=== PATIENT | female | born 1940 ===

== ENCOUNTER 2017-02-07 21:24 | Inpatient (IN) | payer OTHER ==
--- NOTE | 2017-02-07 21:55 | EDPHY ---
H & P Stated Complaint: Left hand dog bite 4 days. HPI/ROS: HPI CHIEF COMPLAINT: Left hand swelling, infection, dog Bite HISTORY OF PRESENT ILLNESS: This patient is 76-year-old female, otherwise healthy denies taking any significant medications, she presents emergency room with left hand pain and swelling and redness after she had a dog bite. She sustained this dog bite 4 days ago. She was started on antibiotics Keflex and clindamycin 3 days ago. She states initially got better but now it is worse. She has pain and swelling to the dorsum of left hand. She is unable to fully flex her fingers as she has pain and swelling. No fever today. There has been purulent discharge plan. She has been taking her Keflex and clindamycin. Past Medical History: Denies medical history Past Surgical History: Denies surgical history Social History: Denies daily use drugs alcohol tobacco products. Family History: Noncontributory ROS REVIEW OF SYSTEMS: A comprehensive 10 point review of systems is otherwise negative aside from elements mentioned in the history of present illness. Exam Constitutional triage nursing summary reviewed, vital signs reviewed, awake/ alert. Eyes normal conjunctivae and sclera, EOMI, PERRLA. HENT normal inspection, atraumatic, moist mucus membranes, no epistaxis, neck supple/ no meningismus, no raccoon eyes. Respiratory clear to auscultation bilaterally, normal breath sounds, no respiratory distress, no wheezing. Cardiovascular rate normal, regular rhythm, no murmur, no edema, distal pulses normal. Gastrointestinal soft, non-tender, no rebound, no guarding, normal bowel sounds, no distension, no pulsatile mass. Genitourinary no CVA tenderness. Musculoskeletal left hand: Neurovascularly intact, to the dorsum left hand there is a 2 cm laceration present, purulent drainage from this, no abscess, surrounding erythema 4 cm circumferential, has trouble with flexion of her 5th digit. No pain with extension. Warm to touch. no midline vertebral tenderness , full range of motion, no calf swelling, no tenderness of extremities, no meningismus, good pulses, neurovascularly intact. Skin pink, warm, & dry, no rash, skin atraumatic. Neurologic awake, alert and oriented x 3, AAOx3, moves all 4 extremities equally, motor intact, sensory intact, CN II-XII intact, normal cerebellar, normal vision, normal speech. Psychiatric normal mood/affect. Heme/Lymph/Immune no lymphadenopathy. Differential Diagnosis: Includes but is not limited to in a particular order left hand infection, dog bite infection, failure of outpatient antibiotics, deep space hand infection Medical Decision Making: Plan for this patient IV established with blood cultures, inflammatory markers, CBC, IV Unasyn, hand surgery consult x-ray of left hand Re-evaluation: 2223: Patient's hand x-ray reviewed. Three view. No visible fracture. No visible foreign body. Soft tissue swelling. 2252: I spoke with Hand surgery Dr. Hancock: He will see in consult on the patient. Recommend hospital admission IV antibiotics. Wound culture bad soaking clean wound. Source: Patient - Personal History Current Tetanus/Diphtheria Vaccine: Unsure Current Tetanus Diphtheria and Acellular Pertussis (TDAP): Unsure - Medical/Surgical History Hx Asthma: No Hx Chronic Respiratory Disease: No Hx Diabetes: No Hx Cardiac Disease: No Hx Renal Disease: No Hx Cirrhosis: No Hx Alcoholism: No Hx HIV/AIDS: No Hx Splenectomy or Spleen Trauma: No Other PMH: HTN, macular degeneration, hypothyroidsm, appendicectomy, R MC. - Social History Smoking Status: Former smoker Constitutional: Initial Vital Signs Temperature (C) 36.6 C 02/07/17 21:27 Heart Rate 77 02/07/17 21:27 Respiratory Rate 16 02/07/17 21:27 Blood Pressure 163/91 H 02/07/17 21:27 O2 Sat (%) 96 02/07/17 21:27 O2 Delivery Mode Room Air Allergies/Adverse Reactions: No Known Allergies Allergy (Unverified 02/07/17 21:34) Home Medications: Medication Instructions Recorded Amoxicillin/Clavulanate Pot 875 mg PO BID #14 tab 02/08/17 [Augmentin 875 MG TAB (*)] Herbals/Supplements -Info Only 1 ea PO DAILY 02/08/17 Hydrogen Peroxide [Hydrogen 1 harrison TP BID solution 02/08/17 Peroxide (OTC)] amLODIPine BESYLATE [Norvasc 5 mg 5 mg PO DAILY #30 tab 02/08/17 (*)] Medical Decision Making - Data Points Laboratory Results: Laboratory Results 02/07/17 22:25 02/07/17 22:25 Medications Given: Discontinued Medications Acetaminophen (Tylenol) 650 mg PO Q4HRS PRN PRN Reason: Pain, Mild/Fever, Can Take PO Stop: 08/06/17 23:29 Last Admin: 02/08/17 15:39 Dose: 650 mg Amlodipine Besylate (Norvasc) 5 mg PO DAILY ROBIN Stop: 08/07/17 17:59 Last Admin: 02/09/17 08:18 Dose: 5 mg Diphtheria/Tetanus/Acell Pertussis (Boostrix) 0.5 ml IM .ONCE ONE Stop: 02/07/17 22:06 Last Admin: 02/07/17 22:32 Dose: 0.5 ml Hydralazine HCl (Apresoline) 10 mg IVP Q1HR PRN PRN Reason: SBP Greater Than Stop: 08/07/17 00:48 Last Admin: 02/08/17 12:59 Dose: 10 mg Hydrogen Peroxide (Hydrogen Peroxide) 1 harrison TP BID ROBIN Stop: 03/10/17 20:59 Last Admin: 02/09/17 07:40 Dose: 0.2 btl Sodium Chloride (Ns) 1,000 mls @ 0 mls/hr IV EDNOW ONE; Wide Open PRN Reason: Protocol Stop: 02/07/17 21:59 Last Admin: 02/07/17 22:33 Dose: 1,000 mls Ampicillin Sodium/Sulbactam (Sodium 3 gm/ Sodium Chloride) 100 mls @ 200 mls/ hr IV EDNOW ONE PRN Reason: Protocol Stop: 02/07/17 22:32 Last Admin: 02/07/17 22:55 Dose: 100 mls Sodium Chloride (Ns) 1,000 mls @ 75 mls/hr IV CONT ROBIN Stop: 08/06/17 23:29 Last Admin: 02/08/17 05:38 Dose: 1,000 mls Ampicillin Sodium/Sulbactam (Sodium 1.5 gm/ Sodium Chloride) 50 mls @ 200 mls/ hr IV Q6H ROBIN PRN Reason: Protocol Stop: 03/10/17 04:59 Last Admin: 02/09/17 10:49 Dose: 50 mls Departure - Departure Disposition: [facility] Acute Clinical Impression: Cellulitis of hand Dog bite Qualifiers: Encounter type: initial encounter Qualified Code(s): W54.0XXA - Bitten by dog, initial encounter Condition: Good
[2017-02-07] MEDS ORDERED: NS 1,000 ML IV ONE (21:58)
[2017-02-07] MEDS ORDERED: AMPICILLIN/SULBACTAM 3 GM in NS 100 ML IV ONE (22:03)
[2017-02-07] MEDS ORDERED: TDAP ADULT 0.5 ML INJ (BOOSTRIX) IM ONE (22:05)
[2017-02-07 22:39] LABS: % IMMATURE GRANULYOCYTES 0.3 % (0.0-1.1); ABSOLUTE IMMATURE GRANULOCYTES 0.02 10^3/uL (0.00-0.10); ADD DIFF? NO; ADD MORPH? NO; ADD SCAN? NO; ATYPICAL LYMPHOCYTE FLAG 0 (0-99); FRAGMENT RBC FLAG 0 (0-99); HEMATOCRIT 37.5 % (38.0-47.0); HEMOGLOBIN 12.1 g/dL (12.6-16.3); LEFT SHIFT FLG 0 (0-99); LIPEMIA HEMOLYSIS FLAG 80 (0-99); MEAN CELL HEMOGLOBIN 30.3 pg (27.9-34.1); MEAN CELL HEMOGLOBIN CONCENTR. 32.3 g/dL (32.4-36.7); MEAN PLATELET VOLUME 11.1 fL (8.7-11.7); PLATELET CLUMPS FLAG 0 (0-99); PLATELET COUNT 254 10^3/uL (150-400); RED BLOOD CELL COUNT 3.99 10^6/uL (4.18-5.33); RED CELL DISTRIBUTION WIDTH 13.7 % (11.5-15.2)
[2017-02-07 22:52] LABS: ANION GAP 12 mEq/L (8-16); CALCIUM 9.1 mg/dL (8.5-10.4); CARBON DIOXIDE 22 mEq/l (22-31); CHLORIDE 106 mEq/L (97-110); CREATININE 0.8 mg/dL (0.6-1.0); GLOMERULAR FILTRATION RATE > 60; GLUCOSE 104 mg/dL (70-100); POTASSIUM 4.6 mEq/L (3.5-5.2); SODIUM 140 mEq/L (134-144)
[2017-02-07 22:53] LABS: SEDIMENTATION RATE 19 MM/HR (0-30)
[2017-02-07] MEDS ORDERED: ACETAMINOPHEN 325 MG TAB PO PRN (23:30)
[2017-02-07] MEDS ORDERED: LORazepam 0.5 MG TAB PO PRN (23:30)
[2017-02-07] MEDS ORDERED: HYDROCODONE/APAP 5/325 TAB PO PRN (23:30)
[2017-02-07] MEDS ORDERED: ONDANSETRON 4 MG/2 ML VIAL IVP PRN (23:30)
[2017-02-07] MEDS ORDERED: HYDROmorphONE/DILAUDID 2 MG/ML INJ IVP PRN (23:30)
[2017-02-07] MEDS ORDERED: NS 1,000 ML IV SCH (23:30)
[2017-02-08] MEDS ORDERED: LORazepam 2 MG/ML INJ IVP PRN (00:49)
[2017-02-08] MEDS: hydrALAZINE 20 MG/ML VIAL IVP PRN ×2 (01:20→12:59)
[2017-02-08 02:23] LABS: COLOR PALE YELLOW; LEUKOCYTE ESTERASE,URINE NEGATIVE (NEGATIVE); NITRITE,URINE NEGATIVE (NEGATIVE)
--- NOTE | 2017-02-08 05:09 | GHP ---
[f rep st] HISTORY AND PHYSICAL DATE OF ADMISSION: 02/07/2017 CHIEF COMPLAINT: Left hand pain and swelling. HISTORY OF PRESENT ILLNESS: This is a very pleasant 76-year-old female with no significant past medi owen history, who presents to the emergency department today with complaints of worsening left hand sw elling. Patient was bitten approximately 5 days ago by her brother's dog who is vaccinated. The pat ient injury occurred approximately 5 days ago and she subsequently had follow up outpatient for lenore salinas, was started on clindamycin and Keflex. The patient reports that she initially started to feel better on the antibiotics; however, after a few days, she has continued to develop decreased appetit e, chills, nausea without vomiting, and worsening swelling, redness and warmth of the left hand exten ding into the wrist. Today, swelling was significantly increased. Patient reports decreased range o f motion in her left hand and some numbness and tingling that started today. Patient also has been h aving some drainage that stops and goes from the wound on her hand. REVIEW OF SYSTEMS: GENERAL: Significant for chills without subjective fevers, decreased appetite. S KIN: Patient also reports some small right lateral leg wound related to trauma after she bumped into something that was slow to heal, but now almost healed. She has no other rashes or sores besides he r left hand as per HPI. ENT: Patient denies any nasal congestion or sore throat. EYES: Patient wi th progressive changes in vision, lightheadedness, she feels is related to her history of macular deg eneration. CV: The patient denies any chest pain, palpitations. RESPIRATORY: The patient recently moved less than a year ago from [place] to [place] and she continues to have some dyspnea on exert ion, but no cough. GI: Nausea, as noted above with decreased appetite. No diarrhea or abdominal pa in. : No dysuria or hematuria. MUSCULOSKELETAL: The patient reports history of osteoarthritis i n her hands. She has decreased range of motion as noted above per HPI on the left hand and a history of right total hip arthroplasty. NEURO: The patient reports some numbness and tingling that starte d this evening in her left hand. No headaches. PSYCH: Patient reports some anxiety and depression, but denies any SI or HI. ALLERGIES: No known drug allergies. HOME MEDICATIONS: Clindamycin and Keflex. Patient reports she has been taking for the last 3 days. She also takes approximately 20 [id number]-[id number] multivitamins and supplements. PAST MEDICAL HISTORY: Significant for macular degeneration, osteoarthritis, history of iron deficien cy. PAST SURGICAL HISTORY: Significant for appendectomy, right total hip arthroplasty, tonsillectomy and adenoidectomy, and cataract surgery. Patient has also had multiple injections for treatment of macu lar degeneration in both eyes. FAMILY HISTORY: Significant for diabetes, hypertension. SOCIAL HISTORY: Patient quit smoking 10-15 years ago. She does not use any illicit drugs. No alcoh ol. CODE STATUS: Was discussed with the patient. Initially, she was not sure that she wanted any heroic resuscitation efforts, but after further discussion with her daughter, she desires to be a full code . PHYSICAL EXAMINATION: VITAL SIGNS: On arrival, temperature 36.6, blood pressure 163/91, heart rate 77, respiratory rate 16, O2 saturation 96% on room air. Current vitals: Blood pressure 204/91, hear t rate 75, respiratory rate 16, pulse ox 94% on room air. However, blood pressure was obtained with me at bedside after I had just discussed resuscitation status with the patient and she became increas ingly anxious and upset. GENERAL: No acute distress. Pleasant adult female, appears slightly older than stated age, sitting in bed. Her daughter is at bedside. HEAD: Normocephalic atraumatic. EYES : Extraocular muscles intact. Pupils equal, round, slightly decreased to activity and light bilater ally, but symmetric. No scleral icterus or conjunctival injection. Gerber reflex appreciated bilateral ly. ENT: Mucous membranes appear slightly dry. No pharyngeal erythema or exudates. NECK: Supple. Trachea midline. CV: Regular rate and rhythm. No murmurs, rubs, or gallops appreciated. RESPIRAT ORY: Lungs clear to auscultation bilaterally. No wheezes, rales, or rhonchi appreciated on labored breathing. ABDOMEN: Positive bowel sounds, soft, nontender to palpation. No rebound, guarding, or masses appreciated. : No Weller in place. No suprapubic tenderness to palpation. EXTREMITIES: P atient without any cyanosis, clubbing, or lower extremity edema. Her left hand is notably swollen to the wrist. She has some erythema that extends proximally past the fingers to the wrist. She has an open wound with some serosanguineous fluid draining from an opening on the dorsum of her hand that m easures approximately 1 cm. Patient has notable decreased range of motion in the fingers related to her edema. Sensation is intact in those fingers. Cap refill appropriate. MUSCULOSKELETAL: The pat loretta's strength grossly normal. She moves all extremities with exception of the left hand, see above . NEURO: Grossly nonfocal. The patient is awake, alert, and oriented x4. She is pleasant and coop erative. PSYCH: Patient does become quite anxious and a little upset with me for discussing code st atus, but understanding of need to have this discussion. She remains anxious through the rest of the visit. LABORATORY STUDIES: WBC 7.3, H and H 12.1 and 37.5, MCV 94.0, platelet count 254. No bands. ESR is 19. Sodium 140, potassium 4.0, chloride 106, CO2 22, BUN 23, creatinine 0.8. GFR greater than 60, glucose 104, calcium 9.1. CRP is 47. REPORTS: Hand x-ray imaging report reviewed myself of the left hand, 3 view, negative for acute osse ous abnormality with advanced degenerative changes noted, most severe involving the left thumb. Osse ous demineralization is also noted. ASSESSMENT AND PLAN: This pleasant 76-year-old female presents following a dog bite on her left hand . 1. Left hand wound related to animal bite. The patient is status post 3 days of clindamycin and Kef freda with worsening edema and drainage. The patient has been transitioned to IV antibiotics with Unas yn. Wound culture and blood cultures were obtained in the ER prior to IV antibiotics. Hand surgery was consulted from the emergency department and will plan to see patient in the morning. She has no evidence of sepsis at this time. Other ESR is elevated. Will make patient n.p.o. after midnight in anticipation for possible need for surgical debridement. 2. Elevated blood pressure without a diagnosis of hypertension. The patient does report a history o f anxiety and blood pressures typically do increase during healthcare visits. Will monitor the patie nt's blood pressures. Will add hydralazine p.r.n., but the patient does not take anything at home. 3. Anxiety and depression: Mood stable at this time. Ativan will be available p.r.n. 4. Fluid, electrolyte and nutrition. The patient reports a 3-day history of poor appetite and oral intake. Her mucous membranes do appear a little bit dry. We will give her some supplemental IV flui ds overnight, go ahead and replace any electrolytes that may be low in the morning. She will be allo wed a diet and then n.p.o. after that until evaluated by surgery. 5. Prophylaxis SCDs only. Holding anticoagulation for potential perioperative status. 6. Code status is full. 7. Disposition: The patient admitted to inpatient status, as she has clearly failed outpatient ther apy and has notable edema and swelling in her hand. Anticipate greater than 2 midnight stay, particu larly to monitor for improvement in her edema and awaiting blood cultures to ensure there is no bacte remia. /[id number]/MODL
[2017-02-08 05:10] LABS: % IMMATURE GRANULYOCYTES 0.5 % (0.0-1.1); ABSOLUTE IMMATURE GRANULOCYTES 0.03 10^3/uL (0.00-0.10); ADD DIFF? NO; ADD MORPH? NO; ADD SCAN? NO; ATYPICAL LYMPHOCYTE FLAG 10 (0-99); FRAGMENT RBC FLAG 0 (0-99); HEMATOCRIT 37.7 % (38.0-47.0); HEMOGLOBIN 12.2 g/dL (12.6-16.3); LEFT SHIFT FLG 0 (0-99); LIPEMIA HEMOLYSIS FLAG 80 (0-99); MEAN CELL HEMOGLOBIN 30.4 pg (27.9-34.1); MEAN CELL HEMOGLOBIN CONCENTR. 32.4 g/dL (32.4-36.7); MEAN PLATELET VOLUME 10.8 fL (8.7-11.7); PLATELET CLUMPS FLAG 0 (0-99); PLATELET COUNT 240 10^3/uL (150-400); RED BLOOD CELL COUNT 4.01 10^6/uL (4.18-5.33); RED CELL DISTRIBUTION WIDTH 13.7 % (11.5-15.2)
[2017-02-08 05:18] LABS: INR 1.06 (0.83-1.16); PROTIME(PATIENT) 13.7 SEC (12.0-15.0)
[2017-02-08 05:19] LABS: APTT 26.8 SEC (23.0-38.0)
[2017-02-08 05:27] LABS: ANION GAP 10 mEq/L (8-16); CALCIUM 9.4 mg/dL (8.5-10.4); CARBON DIOXIDE 23 mEq/l (22-31); CHLORIDE 110 mEq/L (97-110); CREATININE 0.7 mg/dL (0.6-1.0); GLOMERULAR FILTRATION RATE > 60; GLUCOSE 106 mg/dL (70-100); POTASSIUM 4.2 mEq/L (3.5-5.2); SODIUM 143 mEq/L (134-144)
[2017-02-08] MEDS: AMPICILLIN/SULBACTAM 1.5 GM in NS 50 ML IV SCH ×4 (05:42→22:02)
--- NOTE | 2017-02-08 09:24 | GHP ---
[f rep st] HISTORY AND PHYSICAL DATE OF ADMISSION: 02/07/2017 CHIEF COMPLAINT: Left hand pain and swelling. HISTORY OF PRESENT ILLNESS: I was asked to see this patient by the medical team and Dr. Sandoval for ev aluation of her left hand. She was bitten by a dog 4 days ago. She was placed on Keflex, and this o riginally controlled the infection. Now the infection has evolved to the point where she has some pu rulent drainage from her hand, swelling, and ascending cellulitis which has been worsening. She was admitted through the emergency room last night and given antibiotics, Unasyn, and by her report, has improved overnight. PAST MEDICAL HISTORY: Please refer to the patient's main chart. PHYSICAL EXAMINATION: The patient has some swelling of her left hand and erythema. There is no palp able pocket of pus. There is a scabbed over area, which is closed. There is no ascending cellulitis . There is edema subcutaneously, and the patient can move her fingers with no extensor lag and full flexion. There are no swollen lymph nodes in her axilla or antecubital fossa. Circulation is good. ASSESSMENT: Cellulitis and abscess, dorsal hand. PLAN AND RECOMMENDATIONS: It looks like the abscess is resolving nicely. Whatever broke open yester day seems to have drained the abscess and the Unasyn is dramatically improving things, so I do not th ink that she needs to go to the operating room right now. We are going to let her eat, continue IV U nasyn for another 24 hours, have her do twice daily soaks, and the nurses were given instruction on t his and compressive dressings. I suspect that by tomorrow, she will be doing fine and be able to be discharged on Augmentin for 7-10 days and see me in the office on Thursday. We will see how things go overnight. Her vital signs are normal, and she is very stable. /[id number]/MODL
--- NOTE | 2017-02-08 11:04 | ASMTCMCOM ---
CM Note CM Note Notes: Patient admitted after failing oral antibiotic therapy for cellulitis d/t a dog bite. She is now on IV Unasyn and responding well. It does not look like she'll need surgical debridement or IV abx upon discharge. She is eating and stable. CM available for any discharge needs. Date Signed: 02/08/2017 11:04 AM Electronically Signed By:Meg Berg RN
--- NOTE | 2017-02-08 11:20 | HOSPPROG ---
Hospitalist Progress Note Assessment/Plan: #Left dorsal hand abscess: from dog bite. Dr. Hancock evaluated and no need for OR now. Soaks, dressing. IV Unasyn. If improved tomorrow, DC on Augmentin -dog has had rabies shot. Talk with patient about last tetanus shot #Pain: control with APAP #Disp: warrants obs admission with hand abscess requiring IV abx Subjective: pain min, swelling improved Objective: Vital Signs Temp Pulse Resp BP Pulse Ox 36.4 C 82 18 172/72 H 92 02/08/17 04:00 02/08/17 04:00 02/08/17 04:00 02/08/17 04:00 02/08/17 04:00 Laboratory Results 02/08/17 04:52 02/08/17 04:52 02/07/17 02/08/17 02/09/17 05:59 05:59 05:59 Intake Total 100 Balance 100 PT 13.7 SEC (12.0-15.0) 02/08/17 04:52 INR 1.06 (0.83-1.16) 02/08/17 04:52 - Physical Exam Constitutional: no apparent distress Eyes: PERRL Ears, Nose, Mouth, Throat: moist mucous membranes Cardiovascular: regular rate and rhythym, no murmur, rub, or gallop Respiratory: no respiratory distress, no rales or rhonchi Gastrointestinal: normoactive bowel sounds, soft, non-tender abdomen Genitourinary: no bladder fullness, no bladder tenderness Skin: warm, normal color Musculoskeletal: other (left dorsum of hand swollen. Bite site with mild drainage. Good cap refill, +2 radial pulse) Neurologic: AAOx3, CN II-XII Intact Psychiatric: interacting appropriately ICD10 Worksheet Patient Problems: Problems Problem Status Onset Dog bite Acute - ICD10 Problem Qualifiers (1) Dog bite
[2017-02-08] MEDS: amLODIPine BESYLATE 5 MG TAB PO SCH (18:40)
[2017-02-08 19:43] VITALS: RESP 18
[2017-02-08] MEDS: HYDROGEN PEROXIDE 236 ML BOTTLE TP SCH (22:03)
[2017-02-09] MEDS: AMPICILLIN/SULBACTAM 1.5 GM in NS 50 ML IV SCH ×2 (05:29→10:49)
[2017-02-09] MEDS: HYDROGEN PEROXIDE 236 ML BOTTLE TP SCH (07:40)
--- NOTE | 2017-02-09 08:02 | SOAPPROG ---
SOAP Progress Note Assessment/Plan: Assessment: lEFT hand abscess secondary to dog , improving Plan: Nehal was seen this morning at 0700. She has improved markedly with soaks and IV antibiotics. I think she can go home today after her noon dose of Unasyn and continue with soaks twice daily. I will see her in the office at [facility] on Thursday. [phone]. She should call to arrange. 02/09/17 07:59 Subjective: much improved appearance of hand with minor serous drainage from wound, decreased erythema,no evidence of ongoing abscess, full motion of fingers Objective: Vital Signs Temp Pulse Resp BP Pulse Ox 36.7 C 78 18 144/89 H 92 02/09/17 05:27 02/09/17 05:27 02/09/17 05:27 02/09/17 05:27 02/09/17 05:27 Laboratory Results 02/08/17 04:52 02/08/17 04:52 02/08/17 02/09/17 02/10/17 05:59 05:59 05:59 Intake Total 100 Output Total 600 Balance 100 -600 PT 13.7 SEC (12.0-15.0) 02/08/17 04:52 INR 1.06 (0.83-1.16) 02/08/17 04:52 ICD10 Worksheet Patient Problems: Problems Problem Status Onset Dog bite Acute
[2017-02-09] MEDS: amLODIPine BESYLATE 5 MG TAB PO SCH (08:18)
[2017-02-09 08:21] VITALS: BP 196/99
[2017-02-09 08:30] VITALS: PULSE 95; TEMP 97.6; O2SAT 95
[2017-02-09] MEDS ORDERED: Herbals/Supplements -Info Only PO SCH (09:00)
--- NOTE | 2017-02-09 10:24 | HOSPPROG ---
Hospitalist Progress Note Assessment/Plan: #Left dorsal hand abscess: from dog bite. Dr. Hancock evaluated and no need for OR now. Soaks, dressing. IV Unasyn. If improved tomorrow, DC on Augmentin -dog has had rabies shot. Got tetanus shot in clinic -BID soaks per ortho -FU [facility] on Thu #uncontrolled HTN: appears to be chronic since she had been on atenolol in past. No RODRIGUEZ, CP, SOB. Started on Norvasc. Needs PCP, FU BP this week #Pain: control with APAP #Disp: DC today Subjective: no RODRIGUEZ, CP, or SOB. Objective: Vital Signs Temp Pulse Resp BP Pulse Ox 36.4 C 95 18 196/99 H 95 02/09/17 08:00 02/09/17 08:00 02/09/17 08:00 02/09/17 08:18 02/09/17 08:00 Laboratory Results 02/08/17 04:52 02/08/17 04:52 02/08/17 02/09/17 02/10/17 05:59 05:59 05:59 Intake Total 100 Output Total 600 Balance 100 -600 PT 13.7 SEC (12.0-15.0) 02/08/17 04:52 INR 1.06 (0.83-1.16) 02/08/17 04:52 - Physical Exam Constitutional: no apparent distress Eyes: PERRL Ears, Nose, Mouth, Throat: moist mucous membranes, hearing normal Cardiovascular: regular rate and rhythym, no murmur, rub, or gallop, systolic murmur (1-2/6 RUSB) Respiratory: no respiratory distress Gastrointestinal: normoactive bowel sounds Genitourinary: no bladder fullness Musculoskeletal: full muscle strength, other (left hand dressed, CDI. Less swelling) Neurologic: AAOx3, CN II-XII Intact Psychiatric: interacting appropriately ICD10 Worksheet Patient Problems: Problems Problem Status Onset Dog bite Acute - ICD10 Problem Qualifiers (1) Dog bite
--- NOTE | 2017-02-09 10:48 | GDS ---
[f rep st] DISCHARGE SUMMARY DISCHARGE DIAGNOSES: 1. Left hand abscess secondary to dog bite. Positive for Pasteurella. 2. Uncontrolled hypertension. HISTORY OF PRESENT ILLNESS: A 76-year-old female with a history of hypertension who presented with l eft hand swelling. She was bitten by a dog 4 days prior to admission and was placed on Keflex by a kamilah sykes. Symptoms initially improved; however, infection evolved to the point where she is having puru lent drainage, swelling, and cellulitis of the upper arm. HOSPITAL COURSE BY PROBLEM: 1. Left hand abscess: Secondary to dog bite. Patient was evaluated by Dr. Hancock and surgery was no t warranted. She was treated with IV Unasyn here and transitioned to Augmentin for a week with twice daily soaks. Blood cultures remained negative. 2. Uncontrolled hypertension: Initially patient denied any prior history, but then stated she was o n atenolol previously. Systolic blood pressure 190s to 200 here, which I suspect is chronic for her. Started Norvasc 5 mg and recommended that she establish care with a primary care physician and need s to be seen within the next week for blood pressure check. She denies any chest pain, shortness of breath, vision changes or headaches. DISPOSITION: Stable for discharge. NEW MEDICATIONS: 1. Augmentin. 2. Norvasc 5 mg. FOLLOWUP: 1. [facility] on Thursday. 2. Establish care with a PCP. 3. Blood pressure check within 1 week. /[id number]/MODL
--- NOTE | 2017-02-09 10:59 | ASMTCMCOM ---
CM Note CM Note Notes: Pt is being discharged independent today w/ supportive daughter. CM met w/ pt and daughter to discuss POC. Pt and daughter requested a list of holistic primary care doctors to manage her hypertension. CM provided pt and daughter w/ a list. CM available for changes. Date Signed: 02/09/2017 10:58 AM Electronically Signed By:INNA Stoner
--- NOTE | 2017-02-09 16:07 | ASDISCHSUM ---
Discharge Information Plan Status:Home with No Needs Medically Cleared to Leave:02/09/2017 Discharge Date:02/09/2017 11:49 AM CM D/C Disposition:Home, Routine, Self-Care ADT D/C Disposition:Home, Routine, Self-Care Projected Discharge Date:02/09/2017 12:00 AM Transportation at D/C: Discharge Delay Reason: Follow-Up Date:02/09/2017 12:00 AM Discharge Slot: Final Diagnosis: Placement Information Patient Contact Information Contact Name:CRUZ Relationship:Daughter Address: Work Phone: City: [facility] Phone: State/Health Plotter Code: Email: Financial Information Financial Class: Primary Plan Desc:MEDICARE INPATIENT Primary Plan Number:[id number] Secondary Plan Desc:[facility] Secondary Plan Number:[id number] Assessment Information [facility] Progress Note CM Note CM Note Notes: Patient admitted after failing oral antibiotic therapy for cellulitis d/t a dog bite. She is now on IV Unasyn and responding well. It does not look like she'll need surgical debridement or IV abx upon discharge. She is eating and stable. CM available for any discharge needs. Date Signed: 02/08/2017 11:04 AM Electronically Signed By:Meg Berg RN [facility] CM Progress Note CM Note CM Note Notes: Pt is being discharged independent today w/ supportive daughter. CM met w/ pt and daughter to discuss POC. Pt and daughter requested a list of holistic primary care doctors to manage her hypertension. CM provided pt and daughter w/ a list. CM available for changes. Date Signed: 02/09/2017 10:58 AM Electronically Signed By:INNA Stoner Intervention Information Intervention Type:*IM-Signed Date of Service:02/09/2017 11:06 AM Patient Type:Inpatient Staff Member:Nyla Lackey Hours: Discipline: Severity: Comment:
== END 2017-02-09 11:49 | disposition home or self-care (01) | DRG 603 ==
LOC: F3E 02-08 00:21
PROVIDERS: ADMIT Family Medicine; ATTEND Internal Medicine
DX: L02.511 Cutaneous abscess of right hand (principal); I10 Essential (primary) hypertension; E03.9 Hypothyroidism, unspecified; H35.30 Unspecified macular degeneration; M19.049 Primary osteoarthritis, unspecified hand; Z87.891 Personal history of nicotine dependence; Z96.641 Presence of right artificial hip joint
CPT/HCPCS: J0295; J0360

== ENCOUNTER 2017-06-08 11:09 | Emergency (ER) | payer OTHER ==
[2017-06-08 11:40] VITALS: RESP 18
--- NOTE | 2017-06-08 12:53 | EDPHY ---
H & P Time Seen by Provider: 06/08/17 12:53 HPI/ROS: Chief complaint. High blood pressure HPI. 76-year-old female with fatigue for the past 4 days. Apparently she was having her hair done at the salon and had eaten. She got dizzy and shaky. She and her daughter got home and blood pressure 224/98 and then she took her blood pressure medication. She had slightly swollen legs yesterday but after some celery seed these are better today. Somewhat off balance last night. Denies chest pain or shortness of breath. Her dizziness is now resolved. She has a history of hypertension and has not seen a physician since moving to [place] from [place] about 1 year ago ROS Constitutional. Dizzy and fatigued Eyes. no problems with vision ENT. no sore throat, no nasal drainage Cardiovascular. no chest pain Respiratory. no shortness of breath, no cough Abdominal. no abdominal pain, no nausea/vomiting, no diarrhea . no problems urinating MS. Leg swelling Skin. no rash Lymph. no swollen glands Neuro. Off balance last night Past Medical/Surgical History: Hypertension, macular degeneration, hypothyroid Social History: Single, nonsmoker, no alcohol Smoking Status: Former smoker Physical Exam: General Appearance: Alert pleasant well-developed female no distress vital signs are stable Eyes: Pupils equal and round no pallor or injection. ENT, Mouth: Mucous membranes are moist. Respiratory: There are no retractions, lungs are clear to auscultation. Cardiovascular: Regular rate and rhythm. Gastrointestinal: Abdomen is soft and nontender, no masses, bowel sounds normal. Neurological: Awake and alert, sensory and motor exams grossly normal. Skin: Warm and dry, no rashes. Musculoskeletal: Neck is supple nontender. Extremities symmetrical, full range of motion. Psychiatric: Patient is oriented X 3, there is no agitation. Constitutional: Initial Vital Signs Temperature (C) 36.7 C 06/08/17 11:15 Heart Rate 84 06/08/17 11:15 Respiratory Rate 18 06/08/17 11:15 Blood Pressure 124/90 H 06/08/17 11:15 O2 Sat (%) 97 06/08/17 11:15 O2 Delivery Mode Room Air Allergies/Adverse Reactions: No Known Allergies Allergy (Verified 06/08/17 11:20) Home Medications: Medication Instructions Recorded amLODIPine BESYLATE [Norvasc 5 mg 5 mg PO DAILY #30 tab 02/08/17 (*)] Aspirin EC [Aspirin EC 81 mg (*)] 81 mg PO DAILY 06/08/17 Medical Decision Making - Diagnostics EKG Interpretation: EKG interpreted by me shows normal sinus rhythm normal interval. There is left axis deviation. QRS is otherwise normal there is no ST elevation or depression. There is no arrhythmia. The rate 83. Imaging Results: Imaging Impressions Chest X-Ray 06/08/17 13:09 Impression: Clear lungs. Negative portable chest. One-view chest x-ray appears normal Procedures: IV normal saline, monitor ED Course/Re-evaluation: On re-evaluation at 2:30 p.m. patient is stable. Patient and I discussed imaging , EKG, lab results. We discussed treatment plan including criteria for return importance of follow-up further evaluation. She expresses understanding and agreement Patient talked about being dizzy. The patient, daughter and I discussed further imaging of the patient's head she. However the patient declines and does not wish it done today. We discussed giving her the name of a local physician for follow-up and further evaluation and she agrees to this. She is encouraged to return for any worsening symptoms Differential Diagnosis: I considered acute coronary syndrome, hypoglycemia, electrolyte abnormality, just of heart failure - Data Points Laboratory Results: Laboratory Results 06/08/17 13:25 06/08/17 13:25 06/08/17 06/08/17 13:25 13:25 WBC 8.10 10^3/uL 10^3/uL (3.80-9.50) RBC 4.62 10^6/uL 10^6/uL (4.18-5.33) Hgb 14.1 g/dL g/dL (12.6-16.3) Hct 42.9 % % (38.0-47.0) MCV 92.9 fL fL (81.5-99.8) MCH 30.5 pg pg (27.9-34.1) MCHC 32.9 g/dL g/dL (32.4-36.7) RDW 14.5 % % (11.5-15.2) Plt Count 207 10^3/uL 10^3/uL (150-400) MPV 11.0 fL fL (8.7-11.7) Neut % (Auto) 58.7 % % (39.3-74.2) Lymph % (Auto) 24.4 % % (15.0-45.0) [place] % (Auto) 7.5 % % (4.5-13.0) Eos % (Auto) 8.6 % H % (0.6-7.6) Baso % (Auto) 0.4 % % (0.3-1.7) Nucleat RBC Rel Count 0.0 % % (0.0-0.2) Absolute Neuts (auto) 4.75 10^3/uL 10^3/uL (1.70-6.50) Absolute Lymphs (auto) 1.98 10^3/uL 10^3/uL (1.00-3.00) Absolute Monos (auto) 0.61 10^3/uL 10^3/uL (0.30-0.80) Absolute Eos (auto) 0.70 10^3/uL H 10^3/uL (0.03-0.40) Absolute Basos (auto) 0.03 10^3/uL 10^3/uL (0.02-0.10) Absolute Nucleated RBC 0.00 10^3/uL 10^3/uL (0-0.01) Immature Gran % 0.4 % % (0.0-1.1) Immature Gran # 0.03 10^3/uL 10^3/uL (0.00-0.10) Sodium 145 mEq/L mEq/L (135-145) Potassium 4.3 mEq/L mEq/L (3.5-5.2) Chloride 108 mEq/L mEq/L (97-110) Carbon Dioxide 22 mEq/l mEq/l (22-31) Anion Gap 15 mEq/L mEq/L (8-16) BUN 23 mg/dL mg/dL (7-23) Creatinine 0.8 mg/dL mg/dL (0.6-1.0) Estimated GFR > 60 Glucose 90 mg/dL mg/dL (70-100) Calcium 9.8 mg/dL mg/dL (8.5-10.4) Troponin I < 0.012 ng/mL ng/mL (0.000-0.034) NT-Pro-B Natriuret Pep 113 pg/mL pg/mL (0-450) Departure - Departure Disposition: Home, Routine, Self-Care Clinical Impression: Dizziness Condition: Good Instructions: Lightheadedness (ED) Additional Instructions: Regular meals and stay hydrated. Continue regular medication. Return for worsening symptoms. Call and make a follow-up appointment in the next few days. Referrals: Pauline Loco MD [Primary Care Provider] - As per Instructions Paula Salinas MD [Medical Doctor] - 2-3 days, call for appt.
[2017-06-08 13:35] LABS: PLATELET COUNT 207 10^3/uL (150-400)
--- NOTE | 2017-06-08 13:39 | CPEKG ---
Heart Rate: 83 RR Interval: 723 P-R Interval: 192 QRSD Interval: 78 QT Interval: 372 QTC Interval: 437 P Fall Branch: 61 QRS Fall Branch: -39 T Wave Fall Branch: 56 EKG Severity - ABNORMAL ECG - EKG Impression: SINUS RHYTHM EKG Impression: LEFT AXIS DEVIATION EKG Impression: PROBABLE LEFT VENTRICULAR HYPERTROPHY Electronically Signed By: Suhas Desouza 08-Jun-2017 15:23:21
[2017-06-08 14:56] VITALS: BP 133/102; PULSE 69; TEMP 98.6; O2SAT 96
== END 2017-06-08 14:55 | disposition home or self-care (01) ==
DX: R42 Dizziness and giddiness (principal); I10 Essential (primary) hypertension; Z87.891 Personal history of nicotine dependence; Z79.82 Long term (current) use of aspirin

== ENCOUNTER 2018-02-28 11:47 | Observation (INO) | payer OTHER ==
[2018-02-28] MEDS ORDERED: NS 500 ML IV ONE (12:09)
--- NOTE | 2018-02-28 12:19 | EDPHY ---
HPI/HX/ROS/PE/MDM - Data Points Imaging: Discussed imaging studies w/ insole buffer Radiologist, I viewed and interpreted images myself Narrative: CHIEF COMPLAINT: Flat affect, difficulty with short-term memory HPI: The patient is a 77 y/o female with a history of hypertension arriving with her son who reports she has a flat affect and difficulty with her short- term memory. She reports an episode 2 weeks ago where her vision went black and she had difficulty moving after going down the stairs. Symptoms resolved after she sat down. She reports feeling normal ever since then. Her son reports that yesterday, when he called her, her speech was slurred. He arrived at her house an hour later and found her blood pressure in the 200s/100s. She informed him she stopped taking her amlodipine 6 weeks ago. He had her take one and her blood pressure decreased to 140s systolic. Throughout yesterday evening, her son reports she had a flat affect, was saying things that didn't make sense, and had difficulty with her short-term memory. This morning, when he arrived, she had shoveled her driveway and continued to be symptomatic. She denies pain with urination, frequent urination, chest pain, or any other symptoms. She reports she stopped taking her amlodipine because she felt it wasn't helping her and she doesn't like pills. REVIEW OF SYSTEMS: Aside from elements discussed in the HPI, a comprehensive 10-point review of systems was reviewed and is negative. PMH: Hypertension, macular degeneration, depression SOCIAL HISTORY: Lives in [place], has a pet yorkie, retired, son at bedside PHYSICAL EXAM: General:Patient is alert, in no acute distress. ENT:Eyes are normal to inspection. ENT inspection normal. Neck: Normal inspection. Full range of motion. Respiratory:No respiratory distress. Breath sounds normal bilaterally. Cardiovascular: Regular rate and rhythm. Strong peripheral pulses. Normal cap refill. Abdomen:The abdomen is nontender to palpation. There are no peritoneal signs. There are normal bowel sounds. Back: Normal to inspection. No tenderness to palpation. Skin: Normal color. No rash. Warm and dry. Extremities: Normal appearance. Full range of motion. Neuro: Oriented x3. Normal motor function. Normal sensory function. No facial droop. No pronator drift. Fluent speech. (Abilio Akers) ED Course: Study: CT of the head Indication: Altered mental status Results: CT scan of the head was obtained. The results of the study are: meningioma The study was read by the radiologist, Dr. Best. I viewed the images myself on the PACS system. The patient presents with her son who reports she has had a flat affect, difficulty with her short-term memory, and intermittent slurred speech. The patient denies any symptoms but is agreeable to blood work and a head CT, noting an episode 2 weeks ago where her vision went black and she had to sit down. Plan for head CT, EKG, CBC, basic metabolic panel, liver function, troponin, and iSTAT. 1:10 PM - I spoke with Dr. Tirado, neurosurgery regarding this patient. He will consult. He requests an MRI. MRI ordered. 2:30 PM - Dr. Tirado evaluated the patient in the emergency department. He feels she is safe to follow up outpatient. MRI will be completed today. She is requesting to go home. I feel she is safe to return home at this time. Follow up instructions and return precautions given. (Abilio Akers) MDM: I took over care of this patient at 3:00 p.m.. We are waiting the results of an MRI of her brain. CT scan was done and showed a meningioma. MRI was ordered to confirm this. Please see above history per Dr. Abilio Akers for further details. MRI of brain without contrast: 3 cm meningioma confirm. Additional finding includes an acute lacunar infarct left frontal lobe. Results were discussed with staff radiologist Dr. Leander Davis. 4:15 p.m., hospitalist paged for admission and neurology paged for consultation. The patient was re-evaluated. Results of her MRI in confirmation of meningioma discussed with the patient and her relatives who are present at bedside. I discussed diagnosis of acute stroke. I explained that we would admit the patient to our hospitalist service and have Neurology consult. They consent. The patient is currently eating. I have discussed her situation with the nursing staff. There has been no change in her baseline neurologic status. 4:20 p.m., spoke with on-call neurologist Dr. Ulises Andrews. Case discussed in detail with him. This patient is not a tPA candidate. He will consult on this patient after admission to the hospitalist service. He requests a CT angiogram of the head and neck. This has been ordered. 4:25 p.m., spoke with on-call hospitalist Dr. Girard. Case discussed in detail with him. He accepts this patient for admission. 4:50 p.m., Dr. Girard currently evaluating the patient, the patient will be taken to CT for her CT angiogram of her head and her neck then she will be transferred to the floor. Results of the studies will be followed up on by the hospitalist service. The patient's remaining emergency department course under my care has been uneventful. There has been no change in her neurologic condition. She was admitted in stable condition. (Rosana Johnston) - Data Points Imaging Results: Imaging Impressions Head CT 02/28/18 12:09 Impression: 1. Nothing acute identified 2. Suspect left parietal parasagittal meningioma. If there are any old outside brain imaging studies, we would be happy to review them to assess for interval change. If not recommend correlation with MRI, without and with contrast. Final concordant results called to Dr. Abilio Akers at 12:40 PM. General information for patients regarding this examination can be found at [email or web address]. If you have questions or comments about this report, please contact me at [phone] (hospital) or [phone] (cell). Brain MRI 02/28/18 12:50 Impression: 1. Acute lacunar infarct left posterior frontal subcortical white matter. 2. Subacute lacunar infarct right thalamus. 3. Bilateral basal ganglia and thalamic old lacunar infarcts. 4. Left posterior parafalcine extraaxial 3 x 1.8 x 2 cm partially calcified enhancing benign meningioma. 5. Mild cerebral atrophy and severe microvascular ischemic gliosis. 6. Two right frontal lobe nonspecific enhancing 3 mm lesions which may represent metastasis given the patient's age. Follow-up MR imaging in 2-3 months and clinical correlation is suggested. 7. No acute hemorrhage, hydrocephalus, or herniation. Findings and recommendations discussed with emergency department physician, Dr. Johnston at 1610 hours on February 28, 2018. Final report concurs with initial preliminary interpretation. Laboratory Results: Laboratory Results 02/28/18 12:10 02/28/18 12:10 02/28/18 02/28/18 02/28/18 12:24 12:16 12:10 WBC RBC Hgb POC Hgb 14.6 gm/dL gm/dL (12.6-16.3) Hct POC Hct 43 % % (38-47) MCV MCH MCHC RDW Plt Count MPV Neut % (Auto) Lymph % (Auto) [place] % (Auto) Eos % (Auto) Baso % (Auto) Nucleat RBC Rel Count Absolute Neuts (auto) Absolute Lymphs (auto) Absolute Monos (auto) Absolute Eos (auto) Absolute Basos (auto) Absolute Nucleated RBC Immature Gran % Immature Gran # POC Sodium 142 mEq/L mEq/L (135-145) Sodium 140 mEq/L mEq/L (135-145) POC Potassium 3.8 mEq/L mEq/L (3.3-5.0) Potassium 4.6 mEq/L mEq/L (3.3-5.0) POC Chloride 107 mEq/L mEq/L (97-110) Chloride 106 mEq/L mEq/L (97-110) Carbon Dioxide 24 mEq/l mEq/l (22-31) Anion Gap 10 mEq/L mEq/L (6-14) POC BUN 23 mg/dL mg/dL (7-23) BUN 24 mg/dL H mg/dL (7-23) Creatinine 0.6 mg/dL mg/dL (0.6-1.0) POC Creatinine 0.7 mg/dL mg/dL (0.6-1.0) Estimated GFR > 60 Glucose 99 mg/dL mg/dL (70-100) POC Glucose 103 mg/dL H mg/dL (70-100) Calcium 9.4 mg/dL mg/dL (8.5-10.4) Total Bilirubin 0.6 mg/dL mg/dL (0.1-1.4) Conjugated Bilirubin 0.1 mg/dL mg/dL (0.0-0.5) Unconjugated Bilirubin 0.5 mg/dL mg/dL (0.0-1.1) AST 36 IU/L IU/L (14-46) ALT 25 IU/L IU/L (9-52) Alkaline Phosphatase 164 IU/L H IU/L (38-126) POC Troponin I 0.00 ng/mL ng/mL (0.00-0.08) Total Protein 7.4 g/dL g/dL (6.3-8.2) Albumin 4.2 g/dL g/dL (3.5-5.0) 02/28/18 12:10 WBC 6.51 10^3/uL 10^3/uL (3.80-9.50) RBC 4.59 10^6/uL 10^6/uL (4.18-5.33) Hgb 14.1 g/dL g/dL (12.6-16.3) POC Hgb Hct 42.9 % % (38.0-47.0) POC Hct MCV 93.5 fL fL (81.5-99.8) MCH 30.7 pg pg (27.9-34.1) MCHC 32.9 g/dL g/dL (32.4-36.7) RDW 13.7 % % (11.5-15.2) Plt Count 228 10^3/uL 10^3/uL (150-400) MPV 10.5 fL fL (8.7-11.7) Neut % (Auto) 56.0 % % (39.3-74.2) Lymph % (Auto) 30.9 % % (15.0-45.0) [place] % (Auto) 7.8 % % (4.5-13.0) Eos % (Auto) 4.5 % % (0.6-7.6) Baso % (Auto) 0.6 % % (0.3-1.7) Nucleat RBC Rel Count 0.0 % % (0.0-0.2) Absolute Neuts (auto) 3.65 10^3/uL 10^3/uL (1.70-6.50) Absolute Lymphs (auto) 2.01 10^3/uL 10^3/uL (1.00-3.00) Absolute Monos (auto) 0.51 10^3/uL 10^3/uL (0.30-0.80) Absolute Eos (auto) 0.29 10^3/uL 10^3/uL (0.03-0.40) Absolute Basos (auto) 0.04 10^3/uL 10^3/uL (0.02-0.10) Absolute Nucleated RBC 0.00 10^3/uL 10^3/uL (0-0.01) Immature Gran % 0.2 % % (0.0-1.1) Immature Gran # 0.01 10^3/uL 10^3/uL (0.00-0.10) POC Sodium Sodium POC Potassium Potassium POC Chloride Chloride Carbon Dioxide Anion Gap POC BUN BUN Creatinine POC Creatinine Estimated GFR Glucose POC Glucose Calcium Total Bilirubin Conjugated Bilirubin Unconjugated Bilirubin AST ALT Alkaline Phosphatase POC Troponin I Total Protein Albumin Medications Given: Discontinued Medications Sodium Chloride (Ns) 500 mls @ 0 mls/hr IV EDNOW ONE; Wide Open PRN Reason: Protocol Stop: 02/28/18 12:10 Last Admin: 02/28/18 12:11 Dose: 500 mls Point of Care Test Results: Chemistry 02/28/18 02/28/18 12:24 12:16 POC Sodium 142 mEq/L mEq/L (135-145) POC Potassium 3.8 mEq/L mEq/L (3.3-5.0) POC Chloride 107 mEq/L mEq/L (97-110) POC BUN 23 mg/dL mg/dL (7-23) POC Creatinine 0.7 mg/dL mg/dL (0.6-1.0) POC Glucose 103 mg/dL H mg/dL (70-100) POC Troponin I 0.00 ng/mL ng/mL (0.00-0.08) ISTAT H&H 02/28/18 12:16 POC Hgb 14.6 gm/dL gm/dL (12.6-16.3) POC Hct 43 % % (38-47) General Time Seen by Provider: 02/28/18 12:01 Initial Vital Signs: Initial Vital Signs Temperature (C) 36.5 C 02/28/18 11:48 Heart Rate 78 02/28/18 11:48 Respiratory Rate 18 02/28/18 11:48 Blood Pressure 202/103 H 02/28/18 11:48 O2 Sat (%) 95 02/28/18 11:48 O2 Delivery Mode Room Air Allergies/Adverse Reactions: No Known Allergies Allergy (Verified 06/08/17 11:20) Home Medications: Medication Instructions Recorded Escitalopram Oxalate [Lexapro] 5 mg PO DAILY 02/28/18 Herbals/Supplements -Info Only 1 ea PO DAILY 02/28/18 Naproxen Sodium [Aleve 220 MG (*)] 220 mg PO BID PRN 02/28/18 amLODIPine BESYLATE [Norvasc 5 mg 5 mg PO DAILY 02/28/18 (*)] Departure - Departure Disposition: [facility] Inpatient Acute Clinical Impression: Meningioma, CVA (cerebral vascular accident) Condition: Fair Report Scribed for: Abilio Akers Report Scribed by: Janell Arevalo Date of Report: 02/28/18 Time of Report: 12:21 Physician Review and Approval Statement: Portions of this note were transcribed by an ED scribe. I personally performed the history, physical exam, and medical decision making; and confirm the accuracy of the information in the transcribed note.
[2018-02-28 12:22] LABS: PLATELET COUNT 228 10^3/uL (150-400)
--- NOTE | 2018-02-28 15:04 | GCON ---
NEUROSURGERY CONSULT THE PATIENT WAS SEEN AND EVALUATED AT APPROXIMATELY 2:15 P.M. IN THE ER AT [facility] . DATE OF CONSULTATION: 02/28/2018 HISTORY OF PRESENT ILLNESS: The patient is a 77-year-old woman with a history of hypertension who wa s brought in by her son today. Apparently, he spoke to her yesterday and felt that she had a bit of a flat affect and some short-term memory problems. They went out to dinner last night and she was do ing okay, other than the fact that her blood pressure was over 200 systolic because she had not been taking her medications. Again this morning, her blood pressure was high and she still seemed to have these short-term memory problems and flat affect, so she was brought into the. Of note, she did harrison arently have an episode about 2 weeks ago where she felt like she blacked out for a few seconds after she walked down some stairs. She did not fall down or have any clear seizure activity or anything s imilar to this. In the ER today, she had a CT of the head, which shows a small left parafalcine meningioma, which is heavily calcified and measures about 2.3 x 1.9 x 2.1 cm. There is no obvious surrounding vasogenic e jairon and really no significant brain compression in the area either. This is just posterior to the s plenium of the corpus callosum. Currently other than the fact that the sense is that her affect is n ot quite normal, she has no complaints. She has had no headaches and no other neurologic symptoms. REVIEW OF SYSTEMS: A 10-point review of systems is negative other than that described above in the H PI. PAST MEDICAL HISTORY: 1. Hypertension. 2. Macular degeneration. 3. Depression. SOCIAL HISTORY: Lives here in [place]. She is retired and is accompanied by her son-in-law. FAMILY HISTORY: The family history is reviewed and is noncontributory to this admission. ALLERGIES: No known drug allergies. HOME MEDICATIONS: Include: 1. Lexapro. 2. Naproxen. 3. Amlodipine. PHYSICAL EXAMINATION: VITAL SIGNS: Currently, she is afebrile with normal stable vital signs. Her blood pressure is now down to 120/70s systolic. NEUROLOGIC: She is awake, alert, and oriented x3. Her speech is clear and fluent. Pupils are equal, round, and react to light. Her extraocular moveme nts are intact. Face is symmetric. Tongue is midline. She has 5/5 strength to the deltoid, biceps, triceps, wrist flexion, extension, and looper operator bilaterally. In the lower extremities, she has 5/5 stre ngth in hip flexion, extensors, knee flexors, extensors, and plantar and dorsiflexion. She has no pr onator drift. Deep tendon reflexes are normal. IMAGING REVIEW: See HPI. LABORATORY REVIEW: White count 6.5, hemoglobin 14.1, hematocrit 42.9, platelet count 228,000. Sodiu m 140, potassium 4.6, BUN 24, creatinine 0.6, glucose 99. ASSESSMENT/PLAN: The patient is a 77-year-old woman who was found to have an incidental what appears to be a benign meningioma in the left parafalcine area just posterior to the splenium of the corpus callosum. There is no suture significant surrounding vasogenic edema and really no significant brain compression. This is heavily calcified, which would suggest that it has been there for many years. I do not think that this is in any way a direct cause any of the symptoms that she has. These are r ather nonspecific, so it is difficult to say for certain what may be the cause of these. She does no t have any known seizure activity. I discussed with her that we can follow her up in the clinic as a n outpatient and likely would get an MRI scan with and without contrast at some point to better antoine cterize this lesion. Most likely given her age at 77, we will probably just continue with imaging ob servation, but we could discuss treatment with either surgical resection or radiotherapy if she would like. I discussed the case with Dr. Akers and I do not think that this is the cause of her curre nt symptoms, but if any further workup might be required, perhaps the neurologist would have some ot er ideas. Thanks for the kind consultation. /[id number]/MODL
[2018-02-28] MEDS ORDERED: GADOBUTROL 10 ML VIAL IVP ONE (15:26)
[2018-02-28] MEDS ORDERED: IOPAMIDOL (ISOVUE 370) 100 ML BTL IV ONE (16:35)
[2018-02-28] MEDS ORDERED: ONDANSETRON DISINTEGRATING 4 MG TAB PO PRN (16:40)
[2018-02-28] MEDS ORDERED: ONDANSETRON 4 MG/2 ML VIAL IVP PRN (16:40)
[2018-02-28] MEDS ORDERED: ACETAMINOPHEN 325 MG TAB PO PRN (16:40)
--- NOTE | 2018-02-28 18:39 | PDGENHP ---
History and Physical - Chief Complaint Acute dysarthria - History of Present Illness Primary care provider: Kandi Pugh HPI: 77-year-old female presents with acute dysarthria characterized as garbled speech witnessed by her family, with associated flat affect, and impaired short-term memory. The onset of her symptoms was on the day prior to presentation and duration has been intermittent thereafter. Over these past 2 days, the patient has felt somewhat imbalanced in her gait, and this has been visibly notable to the family. The patient has also noticed increased blurred vision located in her left eye, which is increased from her baseline macular degeneration. The symptoms are occurring in the context of experiencing an episode of blacking out approximately 2 weeks ago, which did not result in a traumatic fall but the patient did experience near-syncope, which was resolved after several seconds of sitting down. It is important to note that the patient electively discontinued her SSRI approximately 2 months ago without consulting a medical insurance claims processor without any taper. She stopped taking it because she would like to deescalate her oral medications. She also stopped taking her prescribed blood pressure medication approximately 4-5 weeks ago, and sub taking her aspirin 81 mg daily approximately 2 days ago. Her son-in-law has been checking her blood pressure intermittently and noticed that it has been running between 190 and 200 recently. History Information - Allergies/Home Medication List Allergies/Adverse Reactions: No Known Allergies Allergy (Verified 06/08/17 11:20) Home Medications: Escitalopram Oxalate [Lexapro] 5 mg PO DAILY 02/28/18 [Last Taken 02/27/18] Herbals/Supplements -Info Only 1 ea PO DAILY 02/28/18 [Last Taken Unknown] Naproxen Sodium [Aleve 220 MG (*)] 220 mg PO BID PRN 02/28/18 [Last Taken Unknown] amLODIPine BESYLATE [Norvasc 5 mg (*)] 5 mg PO DAILY 02/28/18 [Last Taken ] I have personally reviewed and updated: family history, medical history, social history, surgical history - Past Medical History hypertension Additional medical history: Macular degeneration, left greater than right. Iron deficient anemia. Depression - Surgical History Additional surgical history: Appendectomy. Right total hip replacement. Tonsillectomy. Adenoidectomy. Cataract surgery - Family History Additional family history: No family history of CVA or brain masses - Social History Smoking Status: Former smoker Alcohol Use: None Drug Use: None Additional social history: Resides independently in her own home, as family who live locally Review of Systems Review of Systems: ROS: 10pt was reviewed & negative except for what was stated in HPI & below EENMT: Reports: blurred vision (Left eye) Neurological: Reports: depressed, other (Dysarthria) Physical Exam Physical Exam: Temp Pulse Resp BP Pulse Ox 36.5 C 76 20 141/109 H 95 02/28/18 11:48 02/28/18 16:00 02/28/18 16:56 02/28/18 16:56 02/28/18 16:56 Constitutional: no apparent distress, appears nourished, not in pain Eyes: PERRL, anicteric sclera, EOMI Ears, Nose, Mouth, Throat: moist mucous membranes, hearing normal, ears appear normal, no oral mucosal ulcers Cardiovascular: regular rate and rhythym, diastolic murmur (1/6 at the sternum and apex), carotid bruit (Possible right-sided), No irregularly irregular, No tachycardia, No edema Respiratory: no respiratory distress, no rales or rhonchi, clear to auscultation Gastrointestinal: normoactive bowel sounds, soft, non-tender abdomen, other (No abdominal bruits), No distension Genitourinary: no bladder fullness, no bladder tenderness Neurologic: AAOx3, sensation intact bilaterally, CN II-XII Intact, No weakness Psychiatric: interacting appropriately, not encephalopathic, thought process linear, anxious, depressed, flat affect, other (Intermittently tearful) Lab Data & Imaging Review 02/28/18 12:10 02/28/18 12:10 WBC 6.51 10^3/uL (3.80-9.50) 02/28/18 12:10 RBC 4.59 10^6/uL (4.18-5.33) 02/28/18 12:10 Hgb 14.1 g/dL (12.6-16.3) 02/28/18 12:10 POC Hgb 14.6 gm/dL (12.6-16.3) 02/28/18 12:16 Hct 42.9 % (38.0-47.0) 02/28/18 12:10 POC Hct 43 % (38-47) 02/28/18 12:16 MCV 93.5 fL (81.5-99.8) 02/28/18 12:10 MCH 30.7 pg (27.9-34.1) 02/28/18 12:10 MCHC 32.9 g/dL (32.4-36.7) 02/28/18 12:10 RDW 13.7 % (11.5-15.2) 02/28/18 12:10 Plt Count 228 10^3/uL (150-400) 02/28/18 12:10 MPV 10.5 fL (8.7-11.7) 02/28/18 12:10 Neut % (Auto) 56.0 % (39.3-74.2) 02/28/18 12:10 Lymph % (Auto) 30.9 % (15.0-45.0) 02/28/18 12:10 Pike % (Auto) 7.8 % (4.5-13.0) 02/28/18 12:10 Eos % (Auto) 4.5 % (0.6-7.6) 02/28/18 12:10 Baso % (Auto) 0.6 % (0.3-1.7) 02/28/18 12:10 Nucleat RBC Rel Count 0.0 % (0.0-0.2) 02/28/18 12:10 Absolute Neuts (auto) 3.65 10^3/uL (1.70-6.50) 02/28/18 12:10 Absolute Lymphs (auto) 2.01 10^3/uL (1.00-3.00) 02/28/18 12:10 Absolute Monos (auto) 0.51 10^3/uL (0.30-0.80) 02/28/18 12:10 Absolute Eos (auto) 0.29 10^3/uL (0.03-0.40) 02/28/18 12:10 Absolute Basos (auto) 0.04 10^3/uL (0.02-0.10) 02/28/18 12:10 Absolute Nucleated RBC 0.00 10^3/uL (0-0.01) 02/28/18 12:10 Immature Gran % 0.2 % (0.0-1.1) 02/28/18 12:10 Immature Gran # 0.01 10^3/uL (0.00-0.10) 02/28/18 12:10 POC Sodium 142 mEq/L (135-145) 02/28/18 12:16 Sodium 140 mEq/L (135-145) 02/28/18 12:10 POC Potassium 3.8 mEq/L (3.3-5.0) 02/28/18 12:16 Potassium 4.6 mEq/L (3.3-5.0) 02/28/18 12:10 POC Chloride 107 mEq/L (97-110) 02/28/18 12:16 Chloride 106 mEq/L (97-110) 02/28/18 12:10 Carbon Dioxide 24 mEq/l (22-31) 02/28/18 12:10 Anion Gap 10 mEq/L (6-14) 02/28/18 12:10 POC BUN 23 mg/dL (7-23) 02/28/18 12:16 BUN 24 mg/dL (7-23) H 02/28/18 12:10 Creatinine 0.6 mg/dL (0.6-1.0) 02/28/18 12:10 POC Creatinine 0.7 mg/dL (0.6-1.0) 02/28/18 12:16 Estimated GFR > 60 02/28/18 12:10 Glucose 99 mg/dL (70-100) 02/28/18 12:10 POC Glucose 103 mg/dL (70-100) H 02/28/18 12:16 Calcium 9.4 mg/dL (8.5-10.4) 02/28/18 12:10 Total Bilirubin 0.6 mg/dL (0.1-1.4) 02/28/18 12:10 Conjugated Bilirubin 0.1 mg/dL (0.0-0.5) 02/28/18 12:10 Unconjugated Bilirubin 0.5 mg/dL (0.0-1.1) 02/28/18 12:10 AST 36 IU/L (14-46) 02/28/18 12:10 ALT 25 IU/L (9-52) 02/28/18 12:10 Alkaline Phosphatase 164 IU/L (38-126) H 02/28/18 12:10 POC Troponin I 0.00 ng/mL (0.00-0.08) 02/28/18 12:24 Total Protein 7.4 g/dL (6.3-8.2) 02/28/18 12:10 Albumin 4.2 g/dL (3.5-5.0) 02/28/18 12:10 Visualized and Interpreted imaging results: Yes Interpretation: Midline meningioma Visualized and Interpreted EKG results: Yes EKG Interpretation: Positive for: other (Normal sinus rhythm) Assessment & Plan Assessment: 77-year-old female presents with acute CVA Plan: 1. CVA. Acute, new problem this provider, further workup indicated. Evidenced by left frontal lacunar infarct on MRI, most likely mediated by chronically uncontrolled hypertension and resultant small vessel disease -discussed with Dr. Rosana Johnston in the emergency department, he reports to me that he has discussed with Neurology and they have recommended CT angiogram of head and neck -will also check echocardiogram given her murmur -will monitor on telemetry -check lipid panel, hemoglobin A1c -although patient would most likely benefit from a statin and her goal LDL is less than 70, the patient her family are very resistant to statin therapy as the patient had episodic impaired memory when she was on a statin previously and consequently they want to consider alternative therapy methods for lipid lowering -patient's family was initially skeptical of utilizing aspirin for further CVA prevention, as her daughter has reviewed recent literature arguing against aspirin therapy, but I have encouraged them to step up from aspirin 81 mg to 325 given that she has been using 81 up until very recently and I believe that this dosage will medicate risks while providing benefits in secondary risk reduction -stroke order set placed, neurology consultation formally in a.m. 2. Hypertension. Chronic, with recent acute worsening secondary to medication non adherence, reviewed outside records including 02/09/[address] Kaitlin Rebolledo, the hospitalization was for a hand abscess secondary to dog bite but blood pressure was notably elevated during that stay, with ranges between 190 and 200, initiated on Norvasc at that time, recommended outpatient PCP follow-up -reinitiate Norvasc 5 mg in a.m., allow permissive hypertension currently given acute CVA 3. Macular degeneration. Is unclear whether the patient's visual symptoms are related to macular degeneration or CVA, would recommend that she follow up closely with her nursing home admissions director to help discern Diet. NPO, swallow eval, then cardiac diet if passes Prophylaxis. High risk patient, SCDs, hold pharm given acute CVA Code. Do not resuscitate per patient, daughter is MD POA Disposition. Anticipated discharge is 03/01, pending further workup and stabilization of conditions outlined above.
[2018-02-28] MEDS: ASPIRIN EC 325 MG TAB PO SCH (19:15)
[2018-03-01] MEDS ORDERED: ESCITALOPRAM OXALATE 10 MG TAB PO SCH (09:00)
[2018-03-01] MEDS ORDERED: Herbals/Supplements -Info Only PO SCH (09:00)
[2018-03-01] MEDS ORDERED: amLODIPine BESYLATE 5 MG TAB PO SCH (09:00)
[2018-03-01] MEDS: ASPIRIN EC 325 MG TAB PO SCH (09:27)
--- NOTE | 2018-03-01 10:00 | NEUROPROG ---
Assessment: HOSPITAL NEUROLOGY CONSULT REQUESTING: Ethan Girard MD REASON: stroke HPI: 77 year old woman with HTN and depression presented to the ED yesterday with an episode of slurred speech and worsening depression/flat affect. Patient had decided to stop taking her medications including her anti-HTN and SSRI. This seemed to correlate with an escalation of her BP and worsening mood. Patient had noted a brief episode of slurred speech 2 days [employer] - this was not associated with language dysfunction or noticeable face drooping. She denies extremity weakness, sensory changes, vision loss, double vision, vertigo, incoordination. ROS: As per the HPI, otherwise a complete 12 point ROS was performed and is negative ALLERGIES AND MEDS: As recorded in the EMR - reviewed and reconciled PFSH: As per the intake H&P by Dr. Girard from yesterday EXAM: VS reviewed in EMR GEN: WDWN laying in NAD HEENT: NCAT, sclera anicteric, conjunctiva not injected, MMM, oropharynx clear, no scalp tenderness NECK: supple, nontender, no meningismus CV: RRR s1 s2 wo m/r/c/g. Carotid pulses 2+ wo bruit NEURO: MS: awake, alert, oriented to all spheres. Speech nondysarthric. No language disturbance. Follows commands. Attends to both sides. Recent/remote memory grossly intact. Mood euthymic. Good fund of knowledge. CN: pupils 3mm round and reactive. Unable to visualize fundi. VFF. Primary gaze centered. Full ocular motility. Facial sensation preserved. Face symmetric. Hearing grossly intact to finger rub. Palatoglossal movements intact. Shoulder shrug and head turn strong. MOTOR: normal bulk/tone. No adventitial movements. Full power throughout. SENSORY: intact to all modalities throughout. No extinction. COORD: no ataxia FN/HS. Miri preserved. REFLEX: plantars down. No clonus. DTRS 2/4. GAIT: deferred to PT safety eval DATA REVIEW: Labs reviewed in EMR LDL 217 A1c pending TTE pending PERSONALLY INTERPRETED RESULTS AND DATA: MRI brain wow - acute left frontal white matter lacunar infarct, subacute right thalamic lacunar infarct, multiple bilateral chronic BG infarcts CTA head/neck - 70% stenosis LICA, 25% stenosis ROBERT, no other hemodynamically significant stenoses/lesions IMPRESSION AND RECOMMENDATIONS: // ACUTE AND SUBACUTE ISCHEMIC STROKES // HTN // HLD Patient with acute left frontal white matter lacunar infarct and subacute right thalamic lacunar infarct. She has no deficits on exam today, so stroke deficits have rapidly resolved. Strokes appear to be of small vessel etiology, and she certainly has risk for this. Should rule out cardioembolism given the bilateral acute/subacute strokes on MRI, but more likely to be concomitant small vessel strokes. She has severe stenosis of the LICA, but I don't think this is symptomatic and she has not been on maximum medical therapy. Long discussion with patient regarding her prior hesitance with statins - we reviewed that the reported cognitive effects of statins have largely been debunked with multiple studies and meta-analyses, and certainly her risk of stroke/vascular complications is very high. Further, patient states she got severely depressed with statin, but son-in-law notes that she also likely stopped her SSRI again at that time, too. - cont ASA 325mg daily - goal normotension with SBP < 130 - goal normoglycemia with A1c at least < 6.5 - would initiate high intensity statin for goal LDL < 70 with close PCP monitoring - patient/family amenable to a trial again (while remaining on SSRI) - outpatient KAYLYN screening - she has a hx of snoring - PT/OT/[employer] evals - stroke education - monitor on tele in-house - follow up on TTE results - recommend 30-day Holter as outpatient - PCP follow up within 1 week of discharge - neurology follow up 6-8 weeks after discharge - likely needs yearly carotid monitoring - will sign off - please recall if any abnormalities on TTE need addressed Objective: Vital Signs Temp Pulse Resp BP Pulse Ox 36.5 C 79 20 143/92 H 95 03/01/18 07:46 03/01/18 07:46 03/01/18 07:46 03/01/18 09:28 03/01/18 07:46 02/28/18 03/01/18 03/02/18 05:59 05:59 05:59 Intake Total 1999 Balance 1999 Allergies/Adverse Reactions: No Known Allergies Allergy (Verified 06/08/17 11:20)
[2018-03-01 12:25] VITALS: BP 160/98
--- NOTE | 2018-03-01 12:38 | ASMTCMCOM ---
CM Note CM Note Notes: Patient admitted with acute dysarthria. She also recently d/c'ed some of her medications, notable her HTN and SSRI meds. She is now amenable to restarting. Her son-in-law is helping her to find a new PCP and will follow up on a recommendation that Dr Girard made. No home care needs have been identified. I did give patient the phone number to call to set up RX delivery through Medicare. I also notified her son in law. If any other needs arise, Case Management is available. Date Signed: 03/01/2018 12:36 PM Electronically Signed By:Meg Berg RN
--- NOTE | 2018-03-01 12:43 | PDDCSUM ---
Discharge Summary Discharge Summary: Date of Admission: 02/28/2018 Date of Discharge: 03/01/2018 Consults: Neurology, Neurosurgery Followup: Neurosurgery, PCP within 1 week of discharge, Neurology follow up 6-8 weeks after discharge - likely needs yearly carotid monitoring Hospital Course Problem List: 1. CVA. Acute, new problem. Evidenced by left frontal lacunar infarct on MRI, most likely mediated by chronically uncontrolled hypertension and resultant small vessel disease - Monitored on telemetry, Neurology recommending 30 day outpatient holter monitor, outpatient KAYLYN screening - she has a hx of snoring - Starting Atorvastatin 40 mg qd, ASA 352 mg qd - TTE performed which showed normal EF and wall motion, age related valve changes with mild mitral thickening and aortic valve sclerosis, mild-mod AR, negative bubble stufy 2. Hypertension. Chronic, with recent acute worsening secondary to medication non adherence, reviewed outside records including 02/09/[address] Kaitlin Rebolledo, the hospitalization was for a hand abscess secondary to dog bite but blood pressure was notably elevated during that stay, with ranges between 190 and 200, initiated on Norvasc at that time, recommended outpatient PCP follow-up -reinitiate Norvasc 5 mg today, titrate as needed as outpatient 3. Macular degeneration. Is unclear whether the patient's visual symptoms are related to macular degeneration or CVA, would recommend that she follow up closely with her wire steward to help discern 4. Meningioma- Seen on CT/MRI, neurosurgery consulted who reviewed imaging and recommend OP f/u with repeat imaging in the future Time spent on discharge was >35 minutes with >50% of time spent on patient education and counseling
--- NOTE | 2018-03-01 16:17 | ECHO ---
[email or web address] [address] [address] Main: [phone] Fax: Transthoracic Echocardiogram Name: ROLANDO HULL MR#: [id number] Study Date: 03/01/2018 Study Time: 10:13 AM Date of : 1940 Age: 77 year(s) Height: 167.6 cm (66 in.) Weight: 75.75 kg (167 lb.) BSA: 1.85 m2 Gender: Female Examination: Echo with Agitated Saline Indication: ischemic stroke Image Quality: Adequate Contrast: I.V. dose of agitated saline Requested by: Ethan Girard BP: 143 mmHg/92 mmHg Heart Rate: Rhythm: Indication: ischemic stroke Procedure Staff Operations Engineer: Mary Brown [facility] Reading Physician: Bryan Ramey MD Requesting Provider: Conclusions: Normal size left ventricle. Mild concentric LV hypertrophy. EF is 64 %. No regional wall motion abnormality. Normal diastolic LV function. An agitated saline study was performed and was negative for intracardiac shunting. There is mild thickening of the mitral valve leaflets. Mild mitral annular calcification. Trivial mitral valve regurgitation. Mild aortic cusp calcification is noted. Mild to moderate aortic valve regurgitation. No aortic valve stenosis is present. Trivial tricuspid valve regurgitation. No pericardial effusion. No prior study for comparison. Measurements: Chambers Valvular Assessment AV/MV Valvular Assessment TV/PV Normal Normal Normal Name Value Range Name Value Range Name Value Range Ao Shana (MM): 3.7 cm (2.2 cm-3.7 AV Vmax: 1.75 m/s (1 m/s-1.7 PV Vmax: 1.02 m/s (0.6 m/s-0.9 cm) m/s) m/s) IVSd (2D): 1.1 cm (0.6 cm-1.1 AV maxP mmHg ( - ) PV PGmax: 4 mmHg ( - ) cm) AV meanP mmHg ( - ) LVDd (2D): 4.1 cm (3.9 cm-5.3 TOREY (VTI): 2.0 cm ( - ) cm) AR (PHT): 419 ms ( - ) LVDs (2D): 2.2 cm (2.1 cm-4 MV E Vmax: 0.62 m/s ( - ) cm) MV A Vmax: 1.21 m/s ( - ) LVPWd (2D): 1.0 cm ( - ) MV E/A: 0.51 ( - ) LVOTd 1.9 cm 1.9 cm mm Patient: ROLANDO HULL Study Date: 03/01/2018 Page 1 of 2 10:13 AM LVEF (BP): 64 % (>=55 %) RVDd(2D): 2.8 cm (1.9 cm-3.8 cmmm) Continued Measurements: Chambers Valvular Assessment AV/MV Name Value Name Value LADs Lon.8 cm MV DecTime: 250 m/s LA Area: 17.7 cm2 MV E' Septal: 0.04 m/s LA Volume: 61 ml MV E/E' Septal: 14.80 LA Volume Index: 33.0 ml/m2 MV E/E' Lateral: 11.00 TAPSE: 2.2 cm AR Vmax: 4.40 cm/s RA Area: 14.3 cm2 Findings: Left Ventricle: Normal size left ventricle. Mild concentric LV hypertrophy. Normal global systolic LV function. EF is 64 %. No regional wall motion abnormality. Normal diastolic LV function. Right Ventricle: Normal size right ventricle. Normal RV function. Left Atrium: The left atirum is borderline dilated. An agitated saline study was performed and was negative for intracardiac shunting. Right Atrium: The right atrium is normal in size. Mitral Valve: There is mild thickening of the mitral valve leaflets. Mild mitral annular calcification. Trivial mitral valve regurgitation. No mitral stenosis is present. Aortic Valve: The aortic valve is tri-leaflet. Mild aortic cusp calcification is noted. Mild to moderate aortic valve regurgitation. No aortic valve stenosis is present. Tricuspid Valve: The tricuspid valve is normal in appearance and function. Trivial tricuspid valve regurgitation. Pulmonic Valve: Pulmonary valve not well visualized. Trivial pulmonic valve regurgitation. Aorta: Normal size aortic root measuring 3.7 cm. IVC: Normal size and course of the IVC. Pericardium: No pericardial effusion. (No Signature Object) Patient: ROLANDO HULL Study Date: 03/01/2018 Page 2 of 2 10:13 AM [id number]
--- NOTE | 2018-03-01 20:27 | CPEKG ---
Test Reason : OPEN Blood Pressure : / mmHG Vent. Rate : 079 BPM Atrial Rate : 078 BPM P-R Int : 184 ms QRS Dur : 081 ms QT Int : 399 ms P-R-T Axes : 046 -33 040 degrees QTc Int : 458 ms Sinus rhythm Left axis deviation Confirmed by Abilio Akers ([id number] on 03/01/2018 8:27:29 PM Referred By: Confirmed By:Abilio Akers
[2018-03-02] MEDS ORDERED: ATORVASTATIN CALCIUM 40 MG TAB PO SCH (09:00)
== END 2018-03-01 13:49 | disposition home or self-care (01) ==
LOC: F3N 17:40
PROVIDERS: ADMIT Internal Medicine; ATTEND Internal Medicine
DX: I63.522 Cerebral infarction due to unspecified occlusion or stenosis of left anterior cerebral artery (principal); R47.1 Dysarthria and anarthria; I10 Essential (primary) hypertension; Z91.128 Patient's intentional underdosing of medication regimen for other reason; D32.0 Benign neoplasm of cerebral meninges; H35.30 Unspecified macular degeneration; Z96.641 Presence of right artificial hip joint
CPT/HCPCS: 70450; 70496; 70498; 70553; 92523; 92610; 93005; 93306; 97161; 97165; 99285; A9585; G0378; G8978; G8979; G8980; G8987; G8988; G8989; G8996; G8997; G8998; G9165; G9166; G9167; Q9967; 82435-PO; 82565-PO; 82947-PO; 84132-PO; 84295-PO; 84484-PO; 84520-PO; 85014-PO